=== PATIENT | male | born 1945 | race Caucasian/White ===

== ENCOUNTER 2017-08-04 08:20 | Observation (INO) ==
[2017-08-04] MEDS ORDERED: Aspirin 81 MG TAB.CHEW PO ONE (08:28)
[2017-08-04 08:54] LABS: Basophils % 0.4 %; Eosinophils # 0.1 K/mcL (0.0-0.6); Hematocrit 41.2 % (37.5-50.1); Hemoglobin 13.5 g/dL (12.9-16.9); Immature Granulocytes % 0.6 % (0-4); Lymphocytes # 3.6 K/mcL (0.6-4.6); Lymphocytes % 31.3 %; Mean Corpuscular HGB Conc 32.8 g/dL (31.6-35.5); Mean Corpuscular Hemoglobin 31.5 pg (28.0-33.3); Mean Corpuscular Volume 96.3 fL (83.0-100.0); Mean Platelet Volume 10.1 fL (9.4-12.4); Neutrophils # 6.6 K/mcL (1.6-8.9); Platelet Count 423 K/mcL (140-400); Red Blood Count 4.28 M/mcL (4.19-5.50); Red Cell Distribution Width 13.6 % (11.5-14.5); Segmented Neutrophils % 57.7 %
[2017-08-04 09:13] LABS: Calcium 9.2 mg/dL (8.6-10.3); Potassium 3.4 mEq/L (3.5-5.1)
[2017-08-04] MEDS ORDERED: 0.9 % Sodium Chloride 1,000 ML IVC ONE (09:40)
--- NOTE | 2017-08-04 09:44 | Emergency Department Note ---
START Narrative - START START: I examined this patient and my medical decision-making was reviewed with the Resident Physician. I agree with the documented findings, disposition and treatment plan as described except to the extent set forth below. 72-year-old male presents to the emergency room for speech problems and confusion. patient is a poor historian any lives at a [facility] and therefore we were not able to obtain much past medical history. However it was reported to studies had a speech difficulty for the past 2 weeks and has been confused. There is no focal motor deficits. CT of the brain was nonacute. Lab work is stable. His pressures have been slightly low but is not been hypertensive. On exam patient has problems answering questions. He can follow commands but cannot express himself well. Patient will be admitted for further workup for an expressive aphasia as well as confusion.
--- NOTE | 2017-08-04 09:50 | Emergency Department Note ---
Disposition Clinical Impression: Dysarthria, RUBY (acute kidney injury) Altered mental status Qualifiers: Altered mental status type: unspecified Qualified Code(s): R41.82 - Altered mental status, unspecified Disposition: Admitted As Inpatient Time of Disposition: 11: General Adult HPI - General Chief complaint: ED Altered Mental Status Stated complaint: AMS Time Seen by Provider: 08/04/17 08:22 Source: patient, EMS Mode of arrival: EMS Limitations: altered mental status Nursing Notes Reviewed: Yes Vital Signs Reviewed: Yes - History of Present Illness HPI Narrative: 72-year-old male brought in from assisted living facility with chief complaint of altered mental status. According to the facility patient has had altered mental status and trouble finding his words for the past 2-3 weeks. Patient denies any acute complaints at this time. He states he does have a history of prostate cancer but no new issues. He denies any chest pain, dizziness, headache, abdominal pain, nausea, vomiting or diarrhea. No other history able to be obtained due to patient's dysarthria. Pain Scale: 0 - Related Data Home Medications Medication Instructions Recorded Confirmed Amlodipine Besylate 10 mg PO DAILY 06/21/16 07/09/17 Aspirin Enteric Coated [Aspirin EC] 81 mg PO DAILY 06/21/16 07/09/17 Atorvastatin Calcium [Lipitor] 80 mg PO DAILY 06/21/16 07/09/17 Divalproex (24 HR) [Depakote ER 500 mg PO AD 06/21/16 07/09/17 (24 HR)] Famotidine [Pepcid] 40 mg PO DAILY 06/21/16 07/09/17 Levothyroxine Sodium [Levoxyl] 25 mcg PO DAILY 06/21/16 07/09/17 Losartan Potassium [Cozaar] 100 mg PO DAILY 06/21/16 07/09/17 Metformin HCl [Fortamet] 500 mg PO BID 06/21/16 07/09/17 Multivitamin/Iron/Folic Acid 1 each PO DAILY 06/21/16 07/09/17 [Centrum Complete Multivit Tab] Venlafaxine HCl [Venlafaxine HCl 75 mg PO DAILY 06/21/16 07/09/17 ER] lamoTRIgine [Lamictal] 100 mg PO BID 06/21/16 07/09/17 Previous Rx's Medication Instructions Recorded Abiraterone Acetate [Zytiga] 4 tab PO DAILY #120 tablet 03/29/17 predniSONE [Prednisone] 5 mg PO BID #60 tab.ds.pk 03/29/17 Allergies Allergy/AdvReac Type Severity Reaction Status Date / Time codeine Allergy Vomiting Verified 07/09/17 13:23 Sulfa (Sulfonamide Allergy Rash Verified 07/09/17 13:23 Antibiotics) All systems ED: reviewed and negative except as stated. Constitutional: Denies: fever Cardiovascular: Denies: chest pain, palpitations Respiratory: Denies: cough, dyspnea, wheezes Gastrointestinal: Denies: abdominal pain, nausea, vomiting Integumentary: Denies: rash Neurological: Reports: other (Dysarthria). Denies: headache, weakness, numbness , paresthesias Past Medical History - Past Medical History Source: unable to obtain Medical history: Reports: non-contributory, cancer, diabetes, seizures, thyroid disease, other Surgical history: Reports: non-contributory Psychiatric history: Reports: anxiety, bipolar, depression - Social History Smoking Status: Former smoker Smokeless Tobacco Status: No Alcohol use: Reports: rarely Drug use: Reports: none Physical Exam - General Limitations: altered mental status General appearance: alert, in no apparent distress - Head Head exam: atraumatic, normocephalic, normal inspection - Eye Eye exam: Present: normal appearance, PERRL, EOMI. Absent: scleral icterus, conjunctival injection - Neck Neck exam: Present: full ROM, other (Incision noted over the left anterior neck) . Absent: tenderness, meningismus - Chest Chest inspection: Present: normal inspection, symmetric chest wall rise. Absent : tenderness, rash - Respiratory Respiratory exam: Present: normal lung sounds bilaterally. Absent: respiratory distress, wheezes - Cardiovascular Cardiovascular exam: Present: regular rate, normal rhythm, normal heart sounds - Abdominal Exam Abdominal exam: Present: soft, Non-Tender. Absent: distention, guarding, rebound - Extremities Exam Extremities exam: Present: normal inspection, full ROM - Neurological Exam Neurological exam: Present: alert, oriented X3, CN II-XII intact, other ( Cerebellar exam within normal limits. Dysarthria on exam). Absent: motor sensory deficit - Skin Skin exam: Present: warm, intact Course Course Narrative: 72-year-old male presenting with altered mental status and dysarthria. Has been 2 to 3 weeks. We will perform stroke workup including CT of the head and basic lab work. Once CT results has been completed we will provide the patient with aspirin and admit the patient for stroke workup. Patient is alert and oriented 2. Vital signs stable. Has no acute complaints at this time. NIH scale 2. - Reevaluation(s) Reevaluation #1: Elevated creatinine at 1.77. We will provide the patient with one 1 L of fluid at this time. Patient alert with stable vital signs. We will plan to admit. CT within normal limits. I spoke with the admitting physician Dr. Ag. Patient is alert and vital signs stable. He agrees with this plan. I tried to call the assisted living facility that he lives at but no one picked up after multiple attempts. Vital Signs Temperature 97.6 F 08/04/17 08:21 Pulse Rate 97 08/04/17 08:21 Respiratory Rate 18 08/04/17 08:21 Blood Pressure 94/56 08/04/17 08:21 O2 Sat by Pulse Oximetry 97 08/04/17 08:21 Temperature 97.6 F 08/04/17 08:21 Pulse Rate 90 08/04/17 09:15 Respiratory Rate 16 08/04/17 09:15 Blood Pressure 97/63 08/04/17 09:15 O2 Sat by Pulse Oximetry 97 08/04/17 09:15 Oxygen Delivery Oxygen Delivery Room Air Medical Decision Making - Lab Data Result diagrams: 08/04/17 08:46 08/04/17 08:46 Lab Results 08/04/17 08/04/17 08/04/17 Range/Units 08:25 08:46 08:46 WBC 11.3 H (4.3-11.1) K/mcL RBC 4.28 (4.19-5.50) M/mcL Hgb 13.5 (12.9-16.9) g/dL Hct 41.2 (37.5-50.1) % MCV 96.3 (83.0-100.0) fL MCH 31.5 (28.0-33.3) pg MCHC 32.8 (31.6-35.5) g/dL RDW 13.6 (11.5-14.5) % Plt Count 423 H (140-400) K/mcL MPV 10.1 (9.4-12.4) fL Immature Gran % 0.6 (0-4) % Seg Neutrophils % 57.7 % Lymphocytes % 31.3 % Monocytes % 9.0 % Eosinophils % 1.0 % Basophils % 0.4 % Neutrophils # 6.6 (1.6-8.9) K/mcL Lymphocytes # 3.6 (0.6-4.6) K/mcL Monocytes # 1.0 (0.0-1.3) K/mcL Eosinophils # 0.1 (0.0-0.6) K/mcL Basophils # 0.0 (0.0-0.2) K/mcL PT 11.0 (9.4-12.1) Seconds INR 1.0 APTT 23.0 L (26.0-36.0) Seconds Sodium (136-145) mEq/L Potassium (3.5-5.1) mEq/L Chloride (98-107) mEq/L Carbon Dioxide (23-29) mEq/L BUN (8-23) mg/dL Creatinine (0.70-1.30) mg/dL Est GFR ( Amer) (> 60) Est GFR (Non-Af Amer) (> 60) BUN/Creatinine Ratio (6-26) Glucose (70-105) mg/dL POC Glucose 128 H (58-89) Calculated Osmolality (280-300) Calcium (8.6-10.3) mg/dL Troponin I (< 0.04) ng/mL 08/04/17 08/04/17 Range/Units 08:46 08:46 WBC (4.3-11.1) K/mcL RBC (4.19-5.50) M/mcL Hgb (12.9-16.9) g/dL Hct (37.5-50.1) % MCV (83.0-100.0) fL MCH (28.0-33.3) pg MCHC (31.6-35.5) g/dL RDW (11.5-14.5) % Plt Count (140-400) K/mcL MPV (9.4-12.4) fL Immature Gran % (0-4) % Seg Neutrophils % % Lymphocytes % % Monocytes % % Eosinophils % % Basophils % % Neutrophils # (1.6-8.9) K/mcL Lymphocytes # (0.6-4.6) K/mcL Monocytes # (0.0-1.3) K/mcL Eosinophils # (0.0-0.6) K/mcL Basophils # (0.0-0.2) K/mcL PT (9.4-12.1) Seconds INR APTT (26.0-36.0) Seconds Sodium 141 (136-145) mEq/L Potassium 3.4 L (3.5-5.1) mEq/L Chloride 104 (98-107) mEq/L Carbon Dioxide 16 L (23-29) mEq/L BUN 30 H (8-23) mg/dL Creatinine 1.77 H (0.70-1.30) mg/dL Est GFR ( Amer) 46 L (> 60) Est GFR (Non-Af Amer) 38 L (> 60) BUN/Creatinine Ratio 17 (6-26) Glucose 145 H (70-105) mg/dL POC Glucose (58-89) Calculated Osmolality 301 H (280-300) Calcium 9.2 (8.6-10.3) mg/dL Troponin I < 0.03 (< 0.04) ng/mL - EKG Data EKG #1 EKG attestation: Yes I reviewed and interpreted this EKG. EKG results narrative: Sinus rhythm with short NM interval. Nonspecific ST depression. 97 bpm. NM interval 116, QRS 80, QTC 406. No signs of acute ST segment elevation or ischemia. Compared to previous EKG completed on 07/11/2016 no new changes noted
[2017-08-04] MEDS ORDERED: Naloxone 0.4 MG/ML INJ IVP PRN (10:19)
[2017-08-04] MEDS ORDERED: Ondansetron 4 MG/2 ML VIAL IVP PRN (10:19)
[2017-08-04] MEDS ORDERED: Acetaminophen 325 MG TABLET PO PRN (10:19)
[2017-08-04] MEDS ORDERED: *HR* Promethazine 25 MG/ML VIAL IVP PRN (10:19)
--- NOTE | 2017-08-04 12:34 | Internal Med History&Physical ---
Date of Encounter: 08/04/17 Time of Encounter: 10:30 Assessment and Plan (1) Expressive aphasia Current visit: Yes Status: Acute Will admit the pt into Tele Reviewed his CT of Head - no acute ICH, no acute intracranial abnormality He does have significant expressive aphasia concern for acute vs subacute stroke not a candidate for TPA due to prolonged duration of symptoms placed him on quality assurance monitor chassis check FLP in AM Started him on ASA + Statin Neuro consulted MRI of brain in AM 2D Echo and Carotid doppler ordered (2) Altered mental status Current visit: Yes Status: Acute Could be stroke vs metabolic encephalopathy cont close monitoring Qualifiers: Altered mental status type: delirium Qualified Code(s): R41.0 - Disorientation, unspecified (3) RUBY (acute kidney injury) Current visit: Yes Status: Acute Slightly elevated creatinine started him on IV hydration (4) Seizure Current visit: Yes Status: Acute resumed home medications (5) Depression Current visit: Yes Status: Acute resumed home medications Qualifiers: Qualified Code(s): F32.9 - Major depressive disorder, single episode, unspecified (6) Compression fracture of lumbosacral spine Current visit: No Status: Chronic Continue home pain medication Qualifiers: Encounter type: subsequent encounter Qualified Code(s): S32.000D - Wedge compression fracture of unspecified lumbar vertebra, subsequent encounter for fracture with routine healing (7) Prostate cancer metastatic to intrapelvic lymph node Current visit: No Status: Chronic Following with heme oncology as an out patient Internal Medicine - H&P: HPI Chief complaint: Expressive aphasia Admitted From: Emergency Dept Plans for Post Hospital Care: Home History of present illness: Mr. 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 He also have expressive aphasia, wanted to say something but unable to communicate or express. He is alert, awake and oriented, however still looks confused. Denied any CP / SOB. Pt is not able to provide me any information. So I talked to his home care attendant from [facility] @ [phone], who provided me the above information. Past Med Surg Social Fam HX - Past Medical History Medical history: non-contributory, cancer, diabetes, seizures, thyroid disease, other Psychiatric history: anxiety, bipolar, depression - Past Surgical History Surgical History: non-contributory - Social History Smoking Status: Former smoker Smokeless Tobacco Status: No Alcohol use: rarely Drug use: none - Additional Family History Additional family history: Reviewed and patient did mention that his mother have stroke Internal Medicine - H&P: Meds Amlodipine Besylate 10 mg PO DAILY 06/21/16 [History] Aspirin Enteric Coated [Aspirin EC] 81 mg PO DAILY 06/21/16 [History] Atorvastatin Calcium [Lipitor] 80 mg PO HS 06/21/16 [History] Divalproex (24 HR) [Depakote ER (24 HR)] 500 mg PO TID 06/21/16 [History] Famotidine [Pepcid] 40 mg PO HS 06/21/16 [History] Levothyroxine Sodium [Levoxyl] 25 mcg PO QAM 06/21/16 [History] Losartan Potassium [Cozaar] 100 mg PO DAILY 06/21/16 [History] Multivitamin/Iron/Folic Acid [Centrum Complete Multivit Tab] 1 each PO DAILY 04/27 [History] lamoTRIgine [Lamictal] 100 mg PO BID 06/21/16 [History] Abiraterone Acetate [Zytiga] 4 tab PO DAILY #120 tablet 03/29/17 [Rx] Carbidopa/Levodopa ER 50/200 [Sinemet ER 50-200 TAB] 1 each PO BID 08/04/17 [ History] DULoxetine [Cymbalta] 30 mg PO BID 08/04/17 [History] Meloxicam [Meloxicam] 15 mg PO BID 08/04/17 [History] OxyCODONE/APAP 10/325 [Percocet 10/325 MG] 1 each PO QID 08/04/17 [History] metFORMIN [Glucophage] 500 mg PO BID 08/04/17 [History] 3 Allergy/AdvReac Type Severity Reaction Status Date / Time codeine Allergy Vomiting Verified 07/09/17 13:23 Sulfa (Sulfonamide Allergy Rash Verified 07/09/17 13:23 Antibiotics) All Systems PM: A 10-system review of systems was performed and is negative for pertinent findings except as documented above in the HPI. Review of systems: All the systems are reviewed everything is benign except the systems and symptoms I mentioned in the history of present illness - Constitutional Vitals: Temp Pulse Resp BP Pulse Ox 97.7 F 89 17 101/67 97 08/04/17 12:10 08/04/17 12:10 08/04/17 12:10 08/04/17 12:10 08/04/17 12:10 General appearance: Present: cooperative, A&O X 3 Exam: Patient is a lot awake and oriented to place and person. Patient is able to tell me where he came from. However due to expressive aphasia not able to understand completely his sentences - Head Head exam: Present: atraumatic, normal inspection - Neck Neck exam general surgery: Present: supple - Respiratory Respiratory exam: Present: decreased breath sounds. Absent: rales, respiratory distress, rhonchi, wheezes - Cardiovascular Cardiovascular exam: Present: RRR, +S1, +S2. Absent: systolic murmur, tachycardia - GI/Abdominal GI/Abdominal exam: Present: normal bowel sounds, soft. Absent: guarding, rebound, rigid, tenderness - Extremities Exam Extremities exam: Absent: calf tenderness, pedal edema, tenderness - Back Exam Back exam: Absent: CVA tenderness (L), CVA tenderness (R) - Neurological Exam Neurological exam: Present: alert, oriented X3, speech deficit. Absent: pronater drift, facial droop - Psychiatric Psychiatric exam: Present: normal affect, normal mood Internal Med - H&P Results - Labs CBC & Chem 7: 08/04/17 08:46 08/04/17 08:46
[2017-08-04] MEDS: Divalproex (24 HR) 500 MG TABLET PO SCH ×2 (14:25→20:25)
[2017-08-04] MEDS ORDERED: D5% in Water 1,000 ML IVC PRN (14:28)
[2017-08-04] MEDS ORDERED: Dextrose Gel 15 GM/37.5 ML TUBE PO PRN ×2 (14:28)
[2017-08-04] MEDS: D5% in 0.45% NACL 1,000 ML IVC SCH (14:28)
[2017-08-04] MEDS ORDERED: *HR* Dextrose 50 % in Water (Syg) 50 ML SYRINGE IVP PRN (14:28)
[2017-08-04] MEDS: Insulin LISPRO 300 UNITS/3 ML VIAL SQ SCH ×2 (16:30→22:22)
--- NOTE | 2017-08-04 16:52 | Neurology - Consult Note ---
Date of Encounter: 08/04/17 Time of Encounter: 15:51 Assessment and Plan (1) Altered mental status Current Visit: Yes Status: Acute Qualifiers: Altered mental status type: unspecified Qualified Code(s): R41.82 - Altered mental status, unspecified (2) Expressive aphasia Current Visit: Yes Status: Acute This patient was been admitted earlier who has an history of multiple medical condition including seizures as well as vagal nerve stimulator for his epilepsy. Patient noted to have difficulty with his speech has been going on for the past several weeks and now noted to be more prominent. Certainly the stroke is a major concern Currently it is not clear that he will be able to get an MRI or not because of the VNS is stimulator. In the meantime suggest that he should keep him on antiplatelet therapy with aspirin 325 mg daily. We will do the stroke workup including echocardiogram as well as carotid in fact we can do a CT angiogram to make sure there is intracranial stenosis. Other possibility could be related to VNS as sometimes it can cause difficulty with his speech but that is mostly articulation problem and not much true aphasia. He did not have any recent seizure suggested to continue on his current dose of Depakote and Lamictal. Check for any underlying infectious etiology and may be contributing to his symptoms. May benefit from physical therapy evaluation. History of Present Illness HPI: Mr. Aguero is a 72 year old male with past medical history of metastatic prostate cancer, major depression, seizure, hypertension, obstruct sleep apnea on CPAP hypertension and diabetes type II who is a long-term resident at the [facility], brought in EMS complaining about patient has been having confusion and altered mental status from last 2 weeks which is progressive worsening since last one week. Patient himself is not able to give much detailed information as per records mainly having difficulty with communication though he is alert and awake and oriented but at times noted to be confused. Patient also has a history of VNS stimulator for seizures had been seen by neurology as an outpatient for his seizure disorder on Depakote and Lamictal for quite some time but no recent seizures reported. Baseline he uses of the wheeled walker Past Med Surg Social Fam HX - Past Medical History Medical history: non-contributory, cancer, diabetes, seizures, thyroid disease, other Psychiatric history: anxiety, bipolar, depression - Past Surgical History Surgical History: non-contributory - Social History Smoking Status: Former smoker Smokeless Tobacco Status: No Alcohol use: rarely Drug use: none Medications and Allergies Amlodipine Besylate 10 mg PO DAILY 06/21/16 [History] Aspirin Enteric Coated [Aspirin EC] 81 mg PO DAILY 06/21/16 [History] Atorvastatin Calcium [Lipitor] 80 mg PO HS 06/21/16 [History] Divalproex (24 HR) [Depakote ER (24 HR)] 500 mg PO TID 06/21/16 [History] Famotidine [Pepcid] 40 mg PO HS 06/21/16 [History] Levothyroxine Sodium [Levoxyl] 25 mcg PO QAM 06/21/16 [History] Losartan Potassium [Cozaar] 100 mg PO DAILY 06/21/16 [History] Multivitamin/Iron/Folic Acid [Centrum Complete Multivit Tab] 1 each PO DAILY 04/27 [History] lamoTRIgine [Lamictal] 100 mg PO BID 06/21/16 [History] Abiraterone Acetate [Zytiga] 4 tab PO DAILY #120 tablet 03/29/17 [Rx] Carbidopa/Levodopa ER 50/200 [Sinemet ER 50-200 TAB] 1 each PO BID 08/04/17 [ History] DULoxetine [Cymbalta] 30 mg PO BID 08/04/17 [History] Meloxicam [Meloxicam] 15 mg PO BID 08/04/17 [History] OxyCODONE/APAP 10/325 [Percocet 10/325 MG] 1 each PO QID 08/04/17 [History] metFORMIN [Glucophage] 500 mg PO BID 08/04/17 [History] 3 Allergy/AdvReac Type Severity Reaction Status Date / Time codeine Allergy Vomiting Verified 07/09/17 13:23 Sulfa (Sulfonamide Allergy Rash Verified 07/09/17 13:23 Antibiotics) All Systems: The remainder of the systems were reviewed and are negative Physical Examination - Vital Signs Vital Signs: Initial Vital Signs Temp Pulse Resp BP Pulse Ox 97.6 F 97 18 94/56 97 08/04/17 08:21 08/04/17 08:21 08/04/17 08:21 08/04/17 08:21 08/04/17 08:21 - Constitutional General appearance: comfortable, other (HEENT atraumatic. Heart S1 and S2 audible. No pedal edema.) - Neurologic Sensorimotor examination: intact (Formal neurological examination patient is alert and awake. Oriented to person and place. Able to follow simple commands. Answer questions appropriately.On formal language testing he did noted to have difficulty with finding words though at times a iggy to say complete sentence but other times he is been having difficulty in articulation and saying things. Comprehension seems to be intact, he has some difficulty with the naming but most of the time he was able to name things quite easily. The patient is also intact but sometimes has difficulty in it as well. On cranial nerves examination no facial asymmetry.. Pupils are equal and reactive. Motor examination [id number] slow but normal. No focal motor weakness, 4/4 on formal testing in both upper and both lower extremities sensory examination was also intact reflexes are symmetrical. Downgoing toes bilaterally.) Results - Laboratory Findings CBC and BMP: 08/04/17 08:46 08/04/17 08:46 Abnormal lab findings: Abnormal lab results WBC 11.3 K/mcL (4.3-11.1) H 08/04/17 08:46 Plt Count 423 K/mcL (140-400) H 08/04/17 08:46 APTT 23.0 Seconds (26.0-36.0) L 08/04/17 08:46 Potassium 3.4 mEq/L (3.5-5.1) L 08/04/17 08:46 Carbon Dioxide 16 mEq/L (23-29) L 08/04/17 08:46 BUN 30 mg/dL (8-23) H 08/04/17 08:46 Creatinine 1.77 mg/dL (0.70-1.30) H 08/04/17 08:46 Est GFR ( Amer) 46 (> 60) L 08/04/17 08:46 Est GFR (Non-Af Amer) 38 (> 60) L 08/04/17 08:46 Glucose 145 mg/dL (70-105) H 08/04/17 08:46 POC Glucose 102 (58-89) H 08/04/17 15:58 Calculated Osmolality 301 (280-300) H 08/04/17 08:46 - Diagnostic Findings Additional findings: CT scan of the head did not show any acute bleed or infarct. Consult Discharge Plan - Plan Referrals: Sina Judge MD [Primary Care Provider] -
[2017-08-04] MEDS: *HR* Heparin 5,000 UNIT/ML VIAL SQ SCH (17:13)
[2017-08-04 19:33] LABS: Vitamin B12 331 pg/mL (250-1100)
[2017-08-04 19:38] LABS: Folate > 22.3 ng/mL (3.0-16.0)
[2017-08-04] MEDS: Famotidine 20 MG TABLET PO SCH (20:24)
[2017-08-04] MEDS: Carbidopa/Levodopa ER 50/200 TABLET PO SCH (20:25)
[2017-08-04] MEDS: lamoTRIgine 100 MG TABLET PO SCH (20:25)
[2017-08-04] MEDS ORDERED: Famotidine 20 MG TABLET PO SCH (21:00)
[2017-08-05] MEDS: D5% in 0.45% NACL 1,000 ML IVC SCH (04:39)
[2017-08-05] MEDS: *HR* Heparin 5,000 UNIT/ML VIAL SQ SCH ×2 (05:22→17:52)
[2017-08-05 06:15] LABS: Basophils % 0.4 %; Eosinophils # 0.1 K/mcL (0.0-0.6); Eosinophils % 1.1 %; Hematocrit 39.7 % (37.5-50.1); Hemoglobin 13.2 g/dL (12.9-16.9); Immature Granulocytes % 0.6 % (0-4); Lymphocytes # 2.9 K/mcL (0.6-4.6); Lymphocytes % 33.8 %; Mean Corpuscular HGB Conc 33.2 g/dL (31.6-35.5); Mean Corpuscular Hemoglobin 31.5 pg (28.0-33.3); Mean Corpuscular Volume 94.7 fL (83.0-100.0); Mean Platelet Volume 10.1 fL (9.4-12.4); Monocytes # 0.7 K/mcL (0.0-1.3); Monocytes % 8.3 %; Neutrophils # 4.8 K/mcL (1.6-8.9); Platelet Count 368 K/mcL (140-400); Red Blood Count 4.19 M/mcL (4.19-5.50); Red Cell Distribution Width 13.3 % (11.5-14.5); Segmented Neutrophils % 55.8 %
[2017-08-05 06:17] LABS: Hemoglobin A1C 5.4 %
[2017-08-05 06:27] LABS: BUN/Creatinine Ratio 28 (6-26); Blood Urea Nitrogen 27 mg/dL (8-23); Calcium 8.4 mg/dL (8.6-10.3); Carbon Dioxide 21 mEq/L (23-29); Chloride 104 mEq/L (98-107); Cholesterol 135 mg/dL (< 200); Glucose 135 mg/dL (70-105); HDL Cholesterol 34 mg/dL (40-59); LDL Cholesterol,Calculated 58 mg/dL (0-99); Osmolality,Calculated 291 (280-300); Potassium 3.3 mEq/L (3.5-5.1); Sodium 137 mEq/L (136-145); Triglycerides 214 mg/dL (< 150); eGFR For Non-African Americans > 60 (> 60)
[2017-08-05] MEDS: Insulin LISPRO 300 UNITS/3 ML VIAL SQ SCH ×4 (09:25→20:33)
[2017-08-05] MEDS: lamoTRIgine 100 MG TABLET PO SCH ×2 (09:30→20:29)
[2017-08-05] MEDS: Aspirin Enteric Coated 81 MG Tablet PO SCH (09:30)
[2017-08-05] MEDS: amLODIPine 5 MG TABLET PO SCH (09:30)
[2017-08-05] MEDS: Levothyroxine 25 MCG TABLET PO SCH (09:30)
[2017-08-05] MEDS: Divalproex (24 HR) 500 MG TABLET PO SCH ×3 (09:30→20:29)
[2017-08-05] MEDS: Carbidopa/Levodopa ER 50/200 TABLET PO SCH ×2 (09:30→20:29)
[2017-08-05] MEDS: ABIRATERONE ACETATE PO SCH (09:46)
--- NOTE | 2017-08-05 14:31 | Neurology Progress Note ---
Date of Encounter: 08/06/17 Time of Encounter: 14:30 Assessment and Plan (1) Altered mental status Current Visit: Yes Status: Resolved Qualifiers: Altered mental status type: unspecified Qualified Code(s): R41.82 - Altered mental status, unspecified (2) Expressive aphasia Current Visit: Yes Status: Acute Patient mental status has improved he is alert awake and oriented is still having difficulty with his speech suspect that he likely has new infarct. Unable to get MRI because of VNS stimulator. Suggest repeat CT scan of the head along with CT angiogram of the head to look for intracranial stenosis. Continue him on an aspirin. No clinical seizures his apical level was slightly low suggest to give an extra dose of Depakote and continue on the same. Patient would probably benefit from long-term speech therapy. Subjective Interval history: Clinically stable no other signs and symptoms not able to get an MRI because of vagal nerve stimulator. Is still having some difficulty with his speech but no seizures no other abnormality. Depakote level slightly low therapeutic. Objective - Constitutional Vitals: Temp Pulse Resp BP Pulse Ox 98.0 F 82 15 91/51 97 08/05/17 12:06 08/05/17 12:06 08/05/17 12:06 08/05/17 12:06 08/05/17 12:06 - Neurological Exam Sensorimotor examination: Present: intact (Formal neurological examination patient is alert and awake. Oriented to person and place. Able to follow simple commands. Answer questions appropriately.On formal language testing he did noted to have difficulty with finding words though at times a iggy to say complete sentence but other times he is been having difficulty in articulation and saying things. Comprehension seems to be intact, he has some difficulty with the naming but most of the time he was able to name things quite easily. The patient is also intact but sometimes has difficulty in it as well. On cranial nerves examination no facial asymmetry.. Pupils are equal and reactive. Motor examination [id number] slow but normal. No focal motor weakness, 4/4 on formal testing in both upper and both lower extremities sensory examination was also intact reflexes are symmetrical. Downgoing toes bilaterally.) Results - Laboratory Findings CBC and BMP: 08/06/17 04:40 08/06/17 04:40 Abnormal lab findings: Abnormal lab results APTT 23.0 Seconds (26.0-36.0) L 08/04/17 08:46 Potassium 3.3 mEq/L (3.5-5.1) L 08/05/17 05:54 Carbon Dioxide 21 mEq/L (23-29) L 08/05/17 05:54 BUN 27 mg/dL (8-23) H 08/05/17 05:54 BUN/Creatinine Ratio 28 (6-26) H 08/05/17 05:54 Glucose 135 mg/dL (70-105) H 08/05/17 05:54 POC Glucose 223 (58-89) H 08/04/17 19:18 Calcium 8.4 mg/dL (8.6-10.3) L 08/05/17 05:54 Triglycerides 214 mg/dL (< 150) H 08/05/17 05:54 VLDL Cholesterol, Calc 43 mg/dL (< 31) H 08/05/17 05:54 HDL Cholesterol 34 mg/dL (40-59) L 08/05/17 05:54 Folate > 22.3 ng/mL (3.0-16.0) H 08/04/17 18:22 Valproic Acid 42 mcg/mL (50-100) L 08/04/17 18:22 Consult Discharge Plan - Plan Referrals: Sina Judge MD [Primary Care Provider] - 08/15/17 1:20 pm
[2017-08-05] MEDS ORDERED: Divalproex (12 HR) 500 MG TABLET PO ONE (15:17)
--- NOTE | 2017-08-05 15:57 | Internal Med Progress Note ---
Date of Encounter: 08/05/17 Time of Encounter: 15:55 - Assessment and plan (1) RUBY (acute kidney injury) Current Visit: Yes Status: Acute Assessment and plan: Slightly elevated creatinine and was started on IV hydration with creatinine normalized today Avoid nephrotoxins (2) Altered mental status Current Visit: Yes Status: Resolved Assessment and plan: Patient mental status is back to baseline. Qualifiers: Altered mental status type: unspecified Qualified Code(s): R41.82 - Altered mental status, unspecified (3) Expressive aphasia Current Visit: Yes Status: Acute Assessment and plan: Reviewed his CT of Head - no acute ICH, no acute intracranial abnormality He does have significant expressive aphasia concern for acute vs subacute stroke Not a candidate for TPA due to prolonged duration of symptoms Started him on ASA + Statin Neuro consulted and following MRI of brain cannot be done secondary to vagal nerve stimulator. 2D Echo and Carotid doppler completed Neurologist saw the patient and would like to repeat the CT scan of the head along with CT a of the head to look for intercranial stenosis. He will continue on aspirin. Patient is able to follow simple commands and answer questions appropriately however on formal language testing per [place] he did have difficulty with finding words at times able to say complete sentences but other times he is having difficulty in articulation and saying certain things. Comprehension is intact but he has difficulty with naming most of the time. Echo report LVEF 65%, mild left ventricular diastolic dysfunction with normal right ventricular structure and function. No significant valvular dysfunction and no pulmonary hypertension ECG findings are normal. Carotid Dopplers are completed but report is pending Repeat CT and CTA of the head have been ordered but not done at this time Neurologist stated we will treat this as a stroke. (4) Seizure Current Visit: Yes Status: Acute Assessment and plan: No seizures but his Depakote level is a little low. We will give an additional 500 mg of Depakote today. Question arose if he should be on Depakote long- acting 3 times a day, will check with neurologist tomorrow on correct dosing (5) Compression fracture of lumbosacral spine Current Visit: No Status: Chronic Assessment and plan: Continue home pain medications Qualifiers: Encounter type: subsequent encounter Qualified Code(s): S32.000D - Wedge compression fracture of unspecified lumbar vertebra, subsequent encounter for fracture with routine healing (6) Depression Current Visit: Yes Status: Acute Assessment and plan: Continue home medications Qualifiers: Qualified Code(s): F32.9 - Major depressive disorder, single episode, unspecified (7) Prostate cancer metastatic to intrapelvic lymph node Current Visit: No Status: Chronic Assessment and plan: Follows with oncology as an outpatient (8) Hypokalemia Current Visit: Yes Status: Acute Assessment and plan: Replace and recheck - Subjective Interval history: Patient is lying in bed in no distress. He denies chest pain, shortness of breath, abdominal pain, headache, fever or chills. He is still having some difficulty with word finding and speech. - Constitutional Vitals: Temp Pulse Resp BP Pulse Ox 98.0 F 82 15 91/51 97 08/05/17 12:06 08/05/17 12:06 08/05/17 12:06 08/05/17 12:06 08/05/17 12:06 General appearance: Present: cooperative, A&O X 3, pleasant, obese, answers questions appropriately - Head Head exam: Present: atraumatic, normocephalic - Eye Eye exam: Present: PERRL, conjuntiva pink, sclera anicteric Pupils: Present: PERRL - Neck Neck exam general surgery: Present: supple, trachea midline. Absent: lymphadenopathy - Respiratory Respiratory exam: Present: decreased breath sounds. Absent: accessory muscle use, rales, respiratory distress, rhonchi, wheezes - Cardiovascular Cardiovascular exam: Present: RRR, +S1, +S2. Absent: diastolic murmur, gallop, rubs, systolic murmur - GI/Abdominal GI/Abdominal exam: Present: normal bowel sounds, soft, no peritoneal signs. Absent: distended, tenderness - Extremities Exam Extremities exam: Present: warm, radial pulses palpable and symmetrical. Absent : calf tenderness, cyanotic, pedal edema - Neurological Exam Neurological exam: Present: alert, CN II-XII intact, oriented X3, strengths equal and symetr throughout. Absent: pronater drift, facial droop, speech deficit - Skin Skin exam: Present: dry, intact, normal color, warm Internal Medicine: Result - Labs CBC & Chem 7: 08/05/17 05:54 08/05/17 05:54 Labs: Short CBC 08/05/17 Range/Units 05:54 WBC 8.5 (4.3-11.1) K/mcL Hgb 13.2 (12.9-16.9) g/dL Hct 39.7 (37.5-50.1) % Plt Count 368 (140-400) K/mcL Neutrophils # 4.8 (1.6-8.9) K/mcL BMP 08/05/17 05:54 Sodium 137 Potassium 3.3 L Chloride 104 Carbon Dioxide 21 L BUN 27 H Creatinine 0.98 Glucose 135 H Calcium 8.4 L Cardiac Enzymes 08/05/17 Range/Units 05:54 Troponin I < 0.03 (< 0.04) ng/mL - ABG Interpretation ABG results: PT/INR, D-dimer PT 11.0 Seconds (9.4-12.1) 08/04/17 08:46 - Impressions Impressions Echocardiogram 08/05/17 10:25 Impressions: LVEF 65%. Mild left ventricular diastolic dysfunction. Normal right ventricular structure and function. No significant valvular dysfunction. No pulmonary hypertension. Left Ventricular Wall Motion: Rest Echo Findings All wall segments showed normal motion. Findings: Study Quality * Technically adequate exam. ECG Findings * Normal sinus rhythm. Left Ventricle * LVEF 65%. * Mild left ventricular diastolic dysfunction. * Normal LV chamber size and wall thickness. Right Ventricle * Normal right ventricular structure and function. Left Atrium * Normal left atrial size. Right Atrium * Normal right atrial size. Aortic Valve * No aortic regurgitation. * Trileaflet aortic valve. * Normal aortic valve structure. * No aortic stenosis. Mitral Valve * Trivial mitral regurgitation. * Normal mitral valve structure. * No mitral stenosis. Tricuspid Valve * Tricuspid valve not well visualized. * No tricuspid regurgitation. Pulmonic Valve * Pulmonic valve is not well visualized. * No pulmonic stenosis. * No pulmonic regurgitation. Pulmonary Artery * Pulmonary artery not well visualized. Aorta * Normally sized aortic root. Pericardium * There is no pericardial effusion present. Interatrial Septum * Interatrial septum not well evaluated. IVC * The IVC is not well evaluated. Consult Discharge Plan - Plan Referrals: Sina Judge MD [Primary Care Provider] -
[2017-08-05] MEDS: Famotidine 20 MG TABLET PO SCH (20:29)
[2017-08-06 05:46] LABS: Hematocrit 35.5 % (37.5-50.1); Hemoglobin 11.7 g/dL (12.9-16.9); Mean Corpuscular Hemoglobin 31.3 pg (28.0-33.3); Mean Corpuscular Volume 94.9 fL (83.0-100.0); Mean Platelet Volume 10.4 fL (9.4-12.4); Platelet Count 349 K/mcL (140-400); Red Blood Count 3.74 M/mcL (4.19-5.50); Red Cell Distribution Width 13.5 % (11.5-14.5)
[2017-08-06 05:50] LABS: BUN/Creatinine Ratio 18 (6-26); Blood Urea Nitrogen 16 mg/dL (8-23); Calcium 8.4 mg/dL (8.6-10.3); Carbon Dioxide 23 mEq/L (23-29); Chloride 109 mEq/L (98-107); Glucose 116 mg/dL (70-105); Osmolality,Calculated 294 (280-300); Potassium 3.9 mEq/L (3.5-5.1); Sodium 141 mEq/L (136-145); eGFR For Non-African Americans > 60 (> 60)
[2017-08-06] MEDS: *HR* Heparin 5,000 UNIT/ML VIAL SQ SCH (06:10)
[2017-08-06] MEDS: Insulin LISPRO 300 UNITS/3 ML VIAL SQ SCH ×2 (09:51→12:15)
[2017-08-06] MEDS: ABIRATERONE ACETATE PO SCH (09:52)
[2017-08-06] MEDS: lamoTRIgine 100 MG TABLET PO SCH (10:00)
[2017-08-06] MEDS: Aspirin Enteric Coated 81 MG Tablet PO SCH (10:00)
[2017-08-06] MEDS: Divalproex (24 HR) 500 MG TABLET PO SCH ×2 (10:00→15:25)
[2017-08-06] MEDS: amLODIPine 5 MG TABLET PO SCH (10:00)
[2017-08-06] MEDS: Levothyroxine 25 MCG TABLET PO SCH (10:00)
[2017-08-06] MEDS: Carbidopa/Levodopa ER 50/200 TABLET PO SCH (10:00)
--- NOTE | 2017-08-06 14:00 | Physician Discharge Referral ---
Home Health/Hosp Referral Info Transfer to: Home Health Provider in Charge Post Discharge: PCP - Respiratory Orders Smoking Cessation: Smoking cessation has been advised. For more information, call the [place] Tobacco Quit Line at 7-295-GTDN-NOW. - Diet/Nutrition Diet/Nutrition Orders: Regular - Activity Activity Orders: Ambulate - Services Needed Following services are medically necessary services: Nursing, Physical Therapy, Occupational Therapy - Transfer Medications Home Medications: Amlodipine Besylate 10 mg PO DAILY 06/21/16 [History] Aspirin Enteric Coated [Aspirin EC] 81 mg PO DAILY 06/21/16 [History] Atorvastatin Calcium [Lipitor] 80 mg PO HS 06/21/16 [History] Divalproex (24 HR) [Depakote ER (24 HR)] 500 mg PO TID 06/21/16 [History] Famotidine [Pepcid] 40 mg PO HS 06/21/16 [History] Levothyroxine Sodium [Levoxyl] 25 mcg PO QAM 06/21/16 [History] Losartan Potassium [Cozaar] 100 mg PO DAILY 06/21/16 [History] Multivitamin/Iron/Folic Acid [Centrum Complete Multivit Tab] 1 each PO DAILY 04/27 [History] lamoTRIgine [Lamictal] 100 mg PO BID 06/21/16 [History] Abiraterone Acetate [Zytiga] 4 tab PO DAILY #120 tablet 03/29/17 [Rx] Carbidopa/Levodopa ER 50/200 [Sinemet ER 50-200 TAB] 1 each PO BID 08/04/17 [ History] DULoxetine [Cymbalta] 30 mg PO BID 08/04/17 [History] Meloxicam [Meloxicam] 15 mg PO BID 08/04/17 [History] OxyCODONE/APAP 10/325 [Percocet 10/325 MG] 1 each PO QID 08/04/17 [History] metFORMIN [Glucophage] 500 mg PO BID 08/04/17 [History] Allergies/Adverse Reactions: 3 Allergy/AdvReac Type Severity Reaction Status Date / Time codeine Allergy Vomiting Verified 07/09/17 13:23 Sulfa (Sulfonamide Allergy Rash Verified 07/09/17 13:23 Antibiotics) Certification: Further, I certify that my clinical findings support that this patient is homebound (i.e. absences from home require considerable and taxing effort and are for medical reasons or caodaism services or infrequently or short duration when for other reasons) because: Homebound Reason: Patient requires assistance of a person or device to safely leave home, Altered mental status requiring supervision when leaving home Attestation: My signature below is to certify that this patient is under my care and that I, or nurse practitioner, or a physician's glass ribbon machine operator assistant working with me, has a face-to -face encounter with this patient.
--- NOTE | 2017-08-06 14:39 | Discharge Summary ---
- NOTES TO OUTPATIENT PROVIDER Notes to Outpatient Provider: Monitor BMP Orders not resulted at time of discharge: Pending orders 08/04/17 16:53 UA w. reflex microscopic [Urinalysis reflex Microscopic] [URIN] Routine 08/04/17 18:22 Vitamin B1 (Thiamine) Whole Bl Routine Date of Encounter: 08/06/17 Time of Encounter: 14:37 - Discharge Diagnosis (1) Expressive aphasia Priority: Primary Status: Acute (2) Altered mental status Priority: Primary Status: Acute Qualifiers: Altered mental status type: unspecified Qualified Code(s): R41.82 - Altered mental status, unspecified (3) RUBY (acute kidney injury) Priority: Secondary Status: Acute (4) Seizure Priority: Secondary Status: Acute (5) Prostate cancer metastatic to intraabdominal lymph node Priority: Secondary Status: Chronic Hospital course: Mr. Aguero is a 72 year old male with history of metastatic Prostate cancer, seizures for which he had a vagal nerve stimulator in the past admitted with altered mental status/expressivity phase here. Initially was concerned about acute/subacute CVA. Initial CT head was negative for any acute finding. He was seen by a neurologist. Recommended MRI of the brain. But he could not have the MRI because of the vagal nerve stimulator. He underwent CT angiogram of the head. Which did not reveal any significant finding attributable for his neurological symptoms. He was followed during the hospital stay. His mental status gradually improved. At the time of discharge he was able to communicate reasonably well. I could not find any dysphasia. But he was generally weak and had difficulty ambulating to some extent. Because of this he was referred to home health for physical and occupational therapy. He had an acute kidney injury on admission his BUNs was 30 and creatinine was 1.7 improved to 16 and 0.87 at discharge His hypokalemia 3.3 was replaced and potassium was 3.9 at discharge He was followed by neurology during the hospital stay. Did not have any new recommendation at the time of discharge. He was continued on his mood stabilizing agents and antiseizure medications. He was on Mobic mg twice a day. Which was changed to 15 mg daily. He will receive outpatient PT OT evaluation and treatment. Recommended to follow-up with primary care physician and neurology. - Time Spent with Patient Total time spent providing and/or coordinating discharge services: Greater than 30 minutes - Discharge Medications Prescriptions: Meloxicam [Mobic] 15 mg PO DAILY 30 Days #30 tab Home Medications: Amlodipine Besylate 10 mg PO DAILY 06/21/16 [History] Aspirin Enteric Coated [Aspirin EC] 81 mg PO DAILY 06/21/16 [History] Atorvastatin Calcium [Lipitor] 80 mg PO HS 06/21/16 [History] Divalproex (24 HR) [Depakote ER (24 HR)] 500 mg PO TID 06/21/16 [History] Famotidine [Pepcid] 40 mg PO HS 06/21/16 [History] Levothyroxine Sodium [Levoxyl] 25 mcg PO QAM 06/21/16 [History] Losartan Potassium [Cozaar] 100 mg PO DAILY 06/21/16 [History] Multivitamin/Iron/Folic Acid [Centrum Complete Multivit Tab] 1 each PO DAILY 04/27 [History] lamoTRIgine [Lamictal] 100 mg PO BID 06/21/16 [History] Abiraterone Acetate [Zytiga] 4 tab PO DAILY #120 tablet 03/29/17 [Rx] Carbidopa/Levodopa ER 50/200 [Sinemet ER 50-200 Tab] 1 each PO BID 08/04/17 [ History] DULoxetine [Cymbalta] 30 mg PO BID 08/04/17 [History] OxyCODONE/APAP 10/325 [Percocet 10/325 MG] 1 each PO QID 08/04/17 [History] metFORMIN [Glucophage] 500 mg PO BID 08/04/17 [History] Meloxicam [Mobic] 15 mg PO DAILY 30 Days #30 tab 08/06/17 [Rx] Allergies/Adverse Reactions: 3 Allergy/AdvReac Type Severity Reaction Status Date / Time codeine Allergy Vomiting Verified 07/09/17 13:23 Sulfa (Sulfonamide Allergy Rash Verified 07/09/17 13:23 Antibiotics) Date of admission: 08/04/17 10:46 Primary care physician: Sina Judge MD Consults: 08/04/17 12:44 Consult to Neurology [CONS] Routine Consulting Provider: Neurology [facility] Reason for Consult: Acute expressive aphasia Time Notified: 12:45 Call Completed: Yes - Constitutional Vitals: Temp Pulse Resp BP Pulse Ox 98.1 F 87 16 137/76 93 08/06/17 12:15 08/06/17 12:15 08/06/17 12:15 08/06/17 12:15 08/06/17 12:15 General appearance: Present: cooperative, A&O X 3, pleasant, obese, answers questions appropriately - Patient Status Disposition: Home Health Service Condition: Fair Functional capacity at discharge: uses cane/walker Overall status at discharge: patient is progressing back to baseline - Discharge Instructions Follow Up With: Sina Judge MD [Primary Care Provider] - Additional Instructions: Follow up with Neurologist - Diet and Activity Activity: as per physical therapy Diet: advance to your usual diet - VTE Reasons for not Prescribing Prophylaxis: Treatment not Indicated - Low risk for VTE
[2017-08-06 15:21] VITALS: BP 144/80
--- NOTE | 2017-08-07 18:11 | Electrocardiograph Report ---
[place] [id number] Test Date: 2017-08-04 Pat Name: Meek Aguero Department: 104 Room: [facility] Gender: M Software Test Analyst: LEANN : 1945 Requested By: Jessica Snyder Order Number: [id number] Reading MD: Luis Thompson Measurements Intervals [place] Rate: 97 P: 7 UT: 116 QRS: -14 QRSD: 80 T: 41 QT: 351 QTc: 406 Interpretive Statements SINUS RHYTHM WITH SHORT UT INTERVAL MODERATE ST DEPRESSION Electronically Signed On 08-07-2017 18:09:06 EST by Luis Thompson
--- NOTE | 2017-08-07 18:29 | Electrocardiograph Report ---
[place] [id number] Test Date: 2017-08-05 Pat Name: Meek Aguero Department: 113 Room: [facility] Gender: M Probate Clerk: [id number] : 1945 Requested By: Arturo Keyes Order Number: [id number] Reading MD: Luis Thompson Measurements Intervals [place] Rate: 84 P: 26 SC: 145 QRS: -15 QRSD: 90 T: 55 QT: 353 QTc: 394 Interpretive Statements SINUS RHYTHM NONSPECIFIC ST & T-WAVE ABNORMALITY Electronically Signed On 08-07-2017 18:27:50 EST by Luis Thompson
== END 2017-08-06 16:09 | disposition home health service (06) ==
LOC: EMEROO 08:20 → 3BNU 08:20
PROVIDERS: ADMIT Family Medicine; ATTEND Registered Nurse

== ENCOUNTER 2017-08-07 14:43 | Inpatient (IN) ==
[2017-08-07] MEDS ORDERED: Naloxone 0.4 MG/ML INJ IVP ONE (15:59)
[2017-08-07 16:05] LABS: Basophils % 0.3 %; Eosinophils % 0.2 %; Hematocrit 37.5 % (37.5-50.1); Hemoglobin 12.1 g/dL (12.9-16.9); Immature Granulocytes % 0.8 % (0-4); Lymphocytes % 16.1 %; Mean Corpuscular HGB Conc 32.3 g/dL (31.6-35.5); Mean Corpuscular Hemoglobin 31.3 pg (28.0-33.3); Mean Corpuscular Volume 96.9 fL (83.0-100.0); Mean Platelet Volume 9.9 fL (9.4-12.4); Monocytes # 0.4 K/mcL (0.0-1.3); Monocytes % 5.8 %; Neutrophils # 4.8 K/mcL (1.6-8.9); Platelet Count 335 K/mcL (140-400); Red Blood Count 3.87 M/mcL (4.19-5.50); Red Cell Distribution Width 13.9 % (11.5-14.5); Segmented Neutrophils % 76.8 %
--- NOTE | 2017-08-07 16:16 | Emergency Department Note ---
START Narrative - START START: I examined this patient and my medical decision-making was reviewed with the DIELECTRIC PRESS OPERATOR/PA/Advanced Practice Nurse/Resident Physician. I agree with the documented findings, disposition and treatment plan as described except to the extent set forth below. I did see the patient spoke with him and examined him and he does not know why he is here. The patient is confused. He specifically denies any pain in the head, neck, chest, abdomen or back. No fevers or vomiting. I did review the nurse's notes. I did review the previous record. Testing including labs and imaging are ordered and results are pending. The patient is stable. No focality. [id number] I did speak with the power of disability attorney who is the sister Lesly Herrera #[phone] and she states the patient has been confused since discharge and has been trying to get into people's cars and currently lives in a fpc called the [facility]. [id number] I did review the EKG showing normal sinus rhythm with rate of 76 without acute ischemic change 0415
[2017-08-07 16:43] LABS: Ethanol < 10 mg/dL (0-10)
--- NOTE | 2017-08-07 16:46 | Emergency Department Note ---
Disposition Clinical Impression: Altered mental status, CVA (cerebral vascular accident) Disposition: Admitted As Inpatient Condition: Undetermined Referrals: Sina Judge MD [Primary Care Provider] - Forms: ED Satisfaction Letter Altered Mental Status HPI - General Chief Complaint: ED Altered Mental Status Stated Complaint: Altered menal status Time Seen by Provider: 08/07/17 15:01 Source: patient, EMS Mode of arrival: EMS Limitations: altered mental status Nursing Notes Reviewed: Yes Vital Signs Reviewed: Yes - History of Present Illness HPI Narrative: 72-year-old male with past medical history of prostate cancer, diabetes, seizures, thyroid disease, and bipolar, presents to the ED via EMS from a [facility] with altered mental status. The patient states to me that he is here for prostate cancer. But he is unable to describe any other reason of why he is in the hospital. He is alert and oriented to person and place, but not to time. He reported to the medical student that he was having back pain, but upon my evaluation he denies any pain. He denies any acute complaints at this time. He denies fevers, chills, lightheadedness, syncope, difficulty speaking, difficulty swallowing, chest pain, shortness of breath, abdominal pain, nausea, vomiting, constipation, diarrhea, dysuria, or leg pain or swelling. He was recently discharged from [facility] 2 days ago for expressive aphasia and altered mental status. During her hospitalization he received a CTA of the head which did not show any significant findings for his symptoms. He is evaluated by neurology at that time with recommendation of PT and OT. Discharge summary reports that his mental status gradually improved and he was able to communicate reasonably well upon discharge, however he was generally weak and had some difficulty ambulating at that time. - Related Data Home Medications Medication Instructions Recorded Confirmed Amlodipine Besylate 10 mg PO DAILY 06/21/16 08/04/17 Aspirin Enteric Coated [Aspirin EC] 81 mg PO DAILY 06/21/16 07/09/17 Atorvastatin Calcium [Lipitor] 80 mg PO HS 06/21/16 08/04/17 Divalproex (24 HR) [Depakote ER 500 mg PO TID 06/21/16 08/04/17 (24 HR)] Famotidine [Pepcid] 40 mg PO HS 06/21/16 08/04/17 Levothyroxine Sodium [Levoxyl] 25 mcg PO QAM 06/21/16 08/04/17 Losartan Potassium [Cozaar] 100 mg PO DAILY 06/21/16 08/04/17 Multivitamin/Iron/Folic Acid 1 each PO DAILY 06/21/16 07/09/17 [Centrum Complete Multivit Tab] lamoTRIgine [Lamictal] 100 mg PO BID 06/21/16 08/04/17 Carbidopa/Levodopa ER 50/200 1 each PO BID 08/04/17 08/04/17 [Sinemet ER 50-200 Tab] DULoxetine [Cymbalta] 30 mg PO BID 08/04/17 08/04/17 OxyCODONE/APAP 10/325 [Percocet 1 each PO QID 08/04/17 08/04/17 10/325 MG] metFORMIN [Glucophage] 500 mg PO BID 08/04/17 08/04/17 Previous Rx's Medication Instructions Recorded Abiraterone Acetate [Zytiga] 4 tab PO DAILY #120 tablet 03/29/17 Meloxicam [Mobic] 15 mg PO DAILY 30 Days #30 tab 08/06/17 Allergies Allergy/AdvReac Type Severity Reaction Status Date / Time codeine Allergy Vomiting Verified 07/09/17 13:23 Sulfa (Sulfonamide Allergy Rash Verified 07/09/17 13:23 Antibiotics) All systems ED: reviewed and negative except as stated. Review of Systems: As Per HPI Past Medical History - Past Medical History Medical history: Reports: non-contributory, cancer, diabetes, seizures, thyroid disease, other Surgical history: Reports: non-contributory Psychiatric history: Reports: anxiety, bipolar, depression - Social History Smoking Status: Former smoker Smokeless Tobacco Status: No Alcohol use: Reports: rarely Drug use: Reports: none Physical Exam - General Limitations: altered mental status General appearance: alert, in no apparent distress - Head Head exam: atraumatic, normocephalic - Eye Eye exam: Present: normal appearance, PERRL, EOMI - ENT ENT exam: normal oropharynx, mucous membranes moist - Neck Neck exam: Present: normal inspection, full ROM, trachea midline. Absent: tenderness - Chest Chest inspection: Present: symmetric chest wall rise - Respiratory Respiratory exam: Present: wheezes (Expiratory wheezes throughout lung vivar). Absent: respiratory distress, accessory muscle use - Cardiovascular Cardiovascular exam: Present: regular rate, normal rhythm, +S1, +S2 - Abdominal Exam Abdominal exam: Present: soft, Non-Tender, normal bowel sounds - Extremities Exam Extremities exam: Present: normal inspection, normal capillary refill. Absent: tenderness, pedal edema - Back Exam Back exam: Present: normal inspection. Absent: tenderness - Neurological Exam Neurological exam: Present: alert, CN II-XII intact, reflexes normal, other ( Strength 5/5 in upper and lower extremities bilaterally). Absent: motor sensory deficit - Expanded Neurological Exam Patient oriented to: Present: person, place Speech: Present: expressive aphasia Cranial nerves: EOM function (II, III, IV, ): Normal, facial sensation (V): Normal, facial palsy (VII): Normal, spinal accessory function (XI): Normal, tongue deviation (XII): Normal Motor strength - LUE: 5/5 Motor strength - RUE: 5/5 Motor strength - LLE: 5/5 Motor strength - RLE: 5/5 Upper motor neuron exam: althea neglect: Absent bilaterally, pronator drift: Absent bilaterally Sensory exam upper extremity: light touch: Normal Sensory exam lower extremity: light touch: Normal DTR: bicep (L): 2+, bicep (R): 2+, patellar (L): 2+, patellar (R): 2+ Coma Scale Eye Opening: Spontaneous Coma Scale Motor Response: Obeys Commands Coma Scale Verbal Response: Confused Coma Scale Total: 14 - Skin Skin exam: Present: warm, dry, intact, normal color Course Vital Signs Temperature 97.7 F 08/07/17 14:45 Pulse Rate 83 08/07/17 14:45 Respiratory Rate 16 08/07/17 14:45 Blood Pressure 105/60 08/07/17 14:45 O2 Sat by Pulse Oximetry 94 08/07/17 14:45 Temperature 97.7 F 08/07/17 14:45 Pulse Rate 81 08/07/17 18:28 Respiratory Rate 15 08/07/17 18:28 Blood Pressure 126/64 08/07/17 18:28 O2 Sat by Pulse Oximetry 96 08/07/17 18:28 Oxygen Delivery Oxygen Delivery Room Air Altered Mental Status - MDM Narrative Medical decision making narrative: CBC unremarkable. Chemistry panel with RUBY, Cr 1.39 (baseline 0.8-0.9). TSH normal. Valproic acid level normal. Ethyl alcohol within normal limits. Chest x-ray shows no acute process. CT of the head shows questionable low attenuation within the right upper lobe which could represent acute to subacute infarct. This was not noted on previous exams from his recent hospitalization. His symptoms of altered mental status have an unclear timing onset, therefore the patient is not a candidate for TPA. He will be admitted to the hospitalization for further evaluation and treatment. - Differential Diagnosis Likely: alcoholic intoxication, altered mental status, delirium, dementia, hypoglycemia - Medical Records Medical records reviewed: Yes I reviewed the patient's medical records. Recent admission with similar complaints. CTA showed no acute abnormalities. Recommendations were for physical therapy and occupational therapy at that time. - Lab Data Lab results reviewed: Yes I reviewed the patient's lab results. Result diagrams: 08/07/17 15:43 08/07/17 15:43 Lab Results 08/07/17 08/07/17 08/07/17 Range/Units 15:43 15:43 15:43 WBC 6.3 (4.3-11.1) K/mcL RBC 3.87 L (4.19-5.50) M/mcL Hgb 12.1 L (12.9-16.9) g/dL Hct 37.5 (37.5-50.1) % MCV 96.9 (83.0-100.0) fL MCH 31.3 (28.0-33.3) pg MCHC 32.3 (31.6-35.5) g/dL RDW 13.9 (11.5-14.5) % Plt Count 335 (140-400) K/mcL MPV 9.9 (9.4-12.4) fL Immature Gran % 0.8 (0-4) % Seg Neutrophils % 76.8 % Lymphocytes % 16.1 % Monocytes % 5.8 % Eosinophils % 0.2 % Basophils % 0.3 % Neutrophils # 4.8 (1.6-8.9) K/mcL Lymphocytes # 1.0 (0.6-4.6) K/mcL Monocytes # 0.4 (0.0-1.3) K/mcL Eosinophils # 0.0 (0.0-0.6) K/mcL Basophils # 0.0 (0.0-0.2) K/mcL PT (9.4-12.1) Seconds INR APTT (26.0-36.0) Seconds Sodium 141 (136-145) mEq/L Potassium 4.6 (3.5-5.1) mEq/L Chloride 106 (98-107) mEq/L Carbon Dioxide 19 L (23-29) mEq/L BUN 15 (8-23) mg/dL Creatinine 1.39 H (0.70-1.30) mg/dL Est GFR ( Amer) > 60 (> 60) Est GFR (Non-Af Amer) 50 L (> 60) BUN/Creatinine Ratio 11 (6-26) Glucose 121 H (70-105) mg/dL Calculated Osmolality 294 (280-300) Calcium 8.7 (8.6-10.3) mg/dL Total Bilirubin 0.3 (0.3-1.0) mg/dL Direct Bilirubin 0.1 (0.0-0.2) mg/dL Indirect Bilirubin 0.2 (0.0-1.2) mg/dL AST 17 (13-39) Units/L ALT 7 (7-52) Units/L Alkaline Phosphatase 61 (34-104) Units/L Troponin I < 0.03 (< 0.04) ng/mL Serum Total Protein 6.3 L (6.4-8.9) g/dL Albumin 3.5 (3.5-5.7) g/dL Globulin 2.8 (2.4-3.5) g/dL Albumin/Globulin Ratio 1.3 (1.1-2.2) TSH 1.106 (0.340-5.600) mcIU/mL Valproic Acid 61 (50-100) mcg/mL Ethyl Alcohol < 10 (0-10) mg/dL 08/07/17 Range/Units 17:20 WBC (4.3-11.1) K/mcL RBC (4.19-5.50) M/mcL Hgb (12.9-16.9) g/dL Hct (37.5-50.1) % MCV (83.0-100.0) fL MCH (28.0-33.3) pg MCHC (31.6-35.5) g/dL RDW (11.5-14.5) % Plt Count (140-400) K/mcL MPV (9.4-12.4) fL Immature Gran % (0-4) % Seg Neutrophils % % Lymphocytes % % Monocytes % % Eosinophils % % Basophils % % Neutrophils # (1.6-8.9) K/mcL Lymphocytes # (0.6-4.6) K/mcL Monocytes # (0.0-1.3) K/mcL Eosinophils # (0.0-0.6) K/mcL Basophils # (0.0-0.2) K/mcL PT 11.2 (9.4-12.1) Seconds INR 1.0 APTT 25.2 L (26.0-36.0) Seconds Sodium (136-145) mEq/L Potassium (3.5-5.1) mEq/L Chloride (98-107) mEq/L Carbon Dioxide (23-29) mEq/L BUN (8-23) mg/dL Creatinine (0.70-1.30) mg/dL Est GFR ( Amer) (> 60) Est GFR (Non-Af Amer) (> 60) BUN/Creatinine Ratio (6-26) Glucose (70-105) mg/dL Calculated Osmolality (280-300) Calcium (8.6-10.3) mg/dL Total Bilirubin (0.3-1.0) mg/dL Direct Bilirubin (0.0-0.2) mg/dL Indirect Bilirubin (0.0-1.2) mg/dL AST (13-39) Units/L ALT (7-52) Units/L Alkaline Phosphatase (34-104) Units/L Troponin I (< 0.04) ng/mL Serum Total Protein (6.4-8.9) g/dL Albumin (3.5-5.7) g/dL Globulin (2.4-3.5) g/dL Albumin/Globulin Ratio (1.1-2.2) TSH (0.340-5.600) mcIU/mL Valproic Acid (50-100) mcg/mL Ethyl Alcohol (0-10) mg/dL - Radiology Data Radiology results reviewed: Yes I reviewed the patient's radiology results. - EKG Data EKG attestation: Yes I reviewed and interpreted this EKG. EKG shows normal: sinus rhythm, axis, intervals, QRS complexes, ST-T waves TPA Checklist - LKW: 3-4.5 hrs Add. Warnings/Precautions Patient/family understanding: The patient/family members have been counseled and understood the risk, benefit , and alternatives of treatment.
[2017-08-07 16:53] LABS: Valproate 61 mcg/mL (50-100)
[2017-08-07 17:05] LABS: Alanine Aminotransferase 7 Units/L (7-52); Albumin 3.5 g/dL (3.5-5.7); Albumin/Globulin Ratio 1.3 (1.1-2.2); Alkaline Phosphatase 61 Units/L (34-104); Aspartate Amino Transferase 17 Units/L (13-39); BUN/Creatinine Ratio 11 (6-26); Bilirubin,Direct 0.1 mg/dL (0.0-0.2); Bilirubin,Indirect 0.2 mg/dL (0.0-1.2); Bilirubin,Total 0.3 mg/dL (0.3-1.0); Blood Urea Nitrogen 15 mg/dL (8-23); Calcium 8.7 mg/dL (8.6-10.3); Carbon Dioxide 19 mEq/L (23-29); Chloride 106 mEq/L (98-107); Globulin 2.8 g/dL (2.4-3.5); Glucose 121 mg/dL (70-105); Osmolality,Calculated 294 (280-300); Potassium 4.6 mEq/L (3.5-5.1); Sodium 141 mEq/L (136-145); Total Protein 6.3 g/dL (6.4-8.9); eGFR For Non-African Americans 50 (> 60)
[2017-08-07 17:41] LABS: Prothrombin Time 11.2 Seconds (9.4-12.1)
[2017-08-07 17:47] LABS: Activated Partial Thrombo Time 25.2 Seconds (26.0-36.0)
[2017-08-07 17:58] LABS: Thyroid Stimulating Hormone 1.106 mcIU/mL (0.340-5.600)
[2017-08-07] MEDS ORDERED: Acetaminophen 325 MG TABLET PO PRN (22:05)
[2017-08-07] MEDS ORDERED: Naloxone 0.4 MG/ML INJ IVP PRN (22:05)
[2017-08-07] MEDS ORDERED: *HR* Dextrose 50 % in Water (Syg) 50 ML SYRINGE IVP PRN (22:09)
[2017-08-07] MEDS ORDERED: Dextrose Gel 15 GM/37.5 ML TUBE PO PRN ×2 (22:09)
[2017-08-07] MEDS ORDERED: D5% in Water 1,000 ML IVC PRN (22:09)
[2017-08-07] MEDS ORDERED: *HR* OxyCODONE/APAP 10/325 TABLET PO PRN (22:10)
[2017-08-08] MEDS: 0.9 % Sodium Chloride 1,000 ML IVC SCH ×2 (00:10→15:00)
[2017-08-08] MEDS: Insulin LISPRO 300 UNITS/3 ML VIAL SQ SCH ×4 (01:13→17:21)
--- NOTE | 2017-08-08 02:59 | Internal Med History&Physical ---
Date of Encounter: 08/07/17 Time of Encounter: 21:00 Assessment and Plan (1) ESTHER (obstructive sleep apnea) Current visit: Yes Status: Acute Previous chart shows pt needs CPAP, will place pt on CPAP during night. (2) DVT prophylaxis Current visit: Yes Status: Acute Heparin SC (3) Altered mental status Current visit: Yes Status: Acute Etiology is possibly due to CVA. Not sure his baseline mental status. Pt is awake, alert, possibly having baseline dementia. - Cont cardiac monitoring. - Pt is already on ASA and atorvastatin - PT/OT and speech therapy evaluation. Qualifiers: Altered mental status type: disorientation Qualified Code(s): R41.0 - Disorientation, unspecified (4) CVA (cerebral vascular accident) Current visit: Yes Status: Acute Pt has symptoms since 08/04/17 since last admission. Pt cannot have MRI b/o stimulator. - Cont cardiac monitoring. - Pt is already on ASA and atorvastatin - PT/OT and speech therapy evaluation. - Pt had echo, duplex carotid and CTA on last admission. Qualifiers: CVA mechanism: unspecified Qualified Code(s): I63.9 - Cerebral infarction, unspecified (5) RUBY (acute kidney injury) Current visit: No Status: Acute Cont IVF and f/u renal function. (6) Depression Current visit: No Status: Acute Cont home meds Qualifiers: Depression Type: unspecified Qualified Code(s): F32.9 - Major depressive disorder, single episode, unspecified (7) Expressive aphasia Current visit: No Status: Acute Possibly due to CVA. Management as above. (8) Seizure Current visit: No Status: Acute Cont home medications (9) Prostate cancer metastatic to intrapelvic lymph node Current visit: No Status: Chronic F/U with oncology as outpatient. Internal Medicine - H&P: HPI Chief complaint: AMS Admitted From: Long-term Nursing Facility Plans for Post Hospital Care: Transfer Inp Rehab Fac History of present illness: Mr. Aguero is a 72 year old male with Hx of prostate cancer, seizure, ESTHER, DM, chronic pain with vagal nerve stimulator, sent from [facility] for AMS and expressive aphasia. Pt was rencently admitted for the same reason and was discharged yesterday. Pt is awake, alert when I saw him, but disoriented, only knows that he is in [facility], but cannot tell the date and who is the president. Hx is mainly obtained from old chart. Pt denies fevers, chills, lightheadedness, syncope, difficulty swallowing, chest pain, shortness of breath , abdominal pain, nausea, vomiting, constipation, diarrhea, dysuria, or leg pain or swelling. He seems having difficulties to find words to express himself. CT head in ER shows acute/subacute infarct on right upper lobe. Pt was admitted for further management. Past Med Surg Social Fam HX - Past Medical History Medical history: non-contributory, cancer, diabetes, seizures, thyroid disease, other Psychiatric history: anxiety, bipolar, depression - Past Surgical History Surgical History: non-contributory - Social History Smoking Status: Former smoker Smokeless Tobacco Status: No Alcohol use: rarely Drug use: none - Family History Mother History Unknown: Yes Internal Medicine - H&P: Meds Amlodipine Besylate 10 mg PO DAILY 06/21/16 [History] Aspirin Enteric Coated [Aspirin EC] 81 mg PO DAILY 06/21/16 [History] Atorvastatin Calcium [Lipitor] 80 mg PO HS 06/21/16 [History] Divalproex (24 HR) [Depakote ER (24 HR)] 500 mg PO TID 06/21/16 [History] Famotidine [Pepcid] 40 mg PO HS 06/21/16 [History] Levothyroxine Sodium [Levoxyl] 25 mcg PO QAM 06/21/16 [History] Losartan Potassium [Cozaar] 100 mg PO DAILY 06/21/16 [History] Multivitamin/Iron/Folic Acid [Centrum Complete Multivit Tab] 1 each PO DAILY 04/27 [History] lamoTRIgine [Lamictal] 100 mg PO BID 06/21/16 [History] Abiraterone Acetate [Zytiga] 4 tab PO DAILY #120 tablet 03/29/17 [Rx] Carbidopa/Levodopa ER 50/200 [Sinemet ER 50-200 Tab] 1 each PO BID 08/04/17 [ History] DULoxetine [Cymbalta] 30 mg PO BID 08/04/17 [History] OxyCODONE/APAP 10/325 [Percocet 10/325 MG] 1 each PO QID 08/04/17 [History] metFORMIN [Glucophage] 500 mg PO BID 08/04/17 [History] Meloxicam [Mobic] 15 mg PO DAILY 30 Days #30 tab 08/06/17 [Rx] 3 Allergy/AdvReac Type Severity Reaction Status Date / Time codeine Allergy Vomiting Verified 07/09/17 13:23 Sulfa (Sulfonamide Allergy Rash Verified 07/09/17 13:23 Antibiotics) All Systems PM: A 10-system review of systems was performed and is negative for pertinent findings except as documented above in the HPI. - Constitutional Vitals: Temp Pulse Resp BP Pulse Ox 97.8 F 83 15 119/53 95 08/08/17 00:12 08/08/17 00:12 08/08/17 00:12 08/08/17 00:12 08/08/17 00:12 General appearance: Present: A&O X 1, no acute distress, answers questions appropriately - Head Head exam: Present: atraumatic, normocephalic - Eye Eye exam: Present: PERRL, conjuntiva pink, sclera anicteric Pupils: Present: PERRL - Neck Neck exam general surgery: Present: supple, trachea midline. Absent: lymphadenopathy - Respiratory Respiratory exam: Present: CTAB. Absent: accessory muscle use, rales, rhonchi, wheezes - Cardiovascular Cardiovascular exam: Present: RRR, +S1, +S2. Absent: diastolic murmur, gallop, rubs, systolic murmur - GI/Abdominal GI/Abdominal exam: Present: normal bowel sounds, soft, no peritoneal signs. Absent: distended, tenderness - Extremities Exam Extremities exam: Present: warm, radial pulses palpable and symmetrical. Absent : calf tenderness, cyanotic, pedal edema - Neurological Exam Neurological exam: Present: CN II-XII intact, oriented X3, no focal deficits, facial droop (Pt seems having left facial drop, not sure it is new or old.). Absent: pronater drift, speech deficit - Skin Skin exam: Present: dry, intact Internal Med - H&P Results - Labs CBC & Chem 7: 08/07/17 15:43 08/07/17 15:43 - EKG Data -: EKG Interpreted by Myself EKG shows normal: sinus rhythm Rate: normal
[2017-08-08] MEDS: *HR* Heparin 5,000 UNIT/ML VIAL SQ SCH ×2 (05:20→17:21)
[2017-08-08] MEDS: Levothyroxine 25 MCG TABLET PO SCH (05:21)
[2017-08-08 05:33] LABS: Bilirubin,Urine Small (Negative); Blood,Urine Negative (Negative); Clarity,Urine Clear (Clear); Color,Urine Yellow (Yellow); Glucose,Urine (UA) Normal (Normal); Ketones,Urine Trace mg/dL (Negative); Leukocyte Esterase,Urine Negative (Negative); Nitrite,Urine Negative (Negative); Protein,Urine Trace mg/dL (Neg-Trace); Specific Gravity,Urine 1.022 (1.010-1.025); Urobilinogen,Urine Normal (Normal)
[2017-08-08 05:36] LABS: Squamous Epithelial Cell,Urine Many per lpf (None-Few)
[2017-08-08 05:46] LABS: Bacteria,Urine Moderate per hpf (None-Few); Hyaline Casts,Urine Moderate per lpf (None-Few); Mucus,Urine Many (Few)
[2017-08-08 06:35] LABS: Amphetamine Screen,Urine Negative ng/mL (Cutoff=1000); Barbiturate Screen,Urine Negative ng/mL (Cutoff=200); Benzodiazepines Screen,Urine Negative ng/mL (Cutoff=200); Cannabinoid Screen,Urine Negative ng/mL (Cutoff = 50); Cocaine Screen,Urine Negative ng/mL (Cutoff= 300); Opiate Screen,Urine Positive ng/mL (Cutoff=300); Phencyclidine Screen,Urine Negative ng/mL (Cutoff=25)
[2017-08-08 07:59] LABS: Basophils % 0.4 %; Eosinophils % 0.6 %; Hematocrit 34.9 % (37.5-50.1); Hemoglobin 11.5 g/dL (12.9-16.9); Immature Granulocytes % 0.4 % (0-4); Lymphocytes # 2.1 K/mcL (0.6-4.6); Mean Corpuscular Hemoglobin 31.7 pg (28.0-33.3); Mean Corpuscular Volume 96.1 fL (83.0-100.0); Mean Platelet Volume 10.8 fL (9.4-12.4); Monocytes # 0.5 K/mcL (0.0-1.3); Neutrophils # 2.7 K/mcL (1.6-8.9); Platelet Count 267 K/mcL (140-400); Red Blood Count 3.63 M/mcL (4.19-5.50); Segmented Neutrophils % 49.6 %
[2017-08-08] MEDS: Aspirin Enteric Coated 81 MG Tablet PO SCH (09:07)
[2017-08-08] MEDS: lamoTRIgine 100 MG TABLET PO SCH ×2 (09:07→21:20)
[2017-08-08] MEDS: Multivit/Ca/Min/Fe/FA 1 TAB TABLET PO SCH (09:07)
[2017-08-08] MEDS: Carbidopa/Levodopa ER 50/200 TABLET PO SCH ×2 (09:07→21:20)
[2017-08-08] MEDS: amLODIPine 5 MG TABLET PO SCH (09:07)
[2017-08-08 09:16] LABS: BUN/Creatinine Ratio 17 (6-26); Blood Urea Nitrogen 16 mg/dL (8-23); Calcium 8.4 mg/dL (8.6-10.3); Carbon Dioxide 23 mEq/L (23-29); Chloride 111 mEq/L (98-107); Glucose 93 mg/dL (70-105); Magnesium 1.6 mg/dL (1.6-2.6); Osmolality,Calculated 295 (280-300); Potassium 3.8 mEq/L (3.5-5.1); Sodium 142 mEq/L (136-145); eGFR For Non-African Americans > 60 (> 60)
[2017-08-08] MEDS: Divalproex (24 HR) 500 MG TABLET PO SCH ×3 (12:07→21:20)
--- NOTE | 2017-08-08 20:11 | Internal Med Progress Note ---
Date of Encounter: 08/08/17 Time of Encounter: 20:09 - Assessment and plan (1) Altered mental status Current Visit: Yes Status: Acute Assessment and plan: Likely secondary to CVA. PT/OT/ST consulted. Continue aspirin and atorvastatin. Continue diagnostic cardiac sonographer. Spoke with POA about baseline mental status today. He is able to converse and take care of his own ADLs/IADLs prior to previous admission. Will monitor. Qualifiers: Altered mental status type: disorientation Qualified Code(s): R41.0 - Disorientation, unspecified (2) CVA (cerebral vascular accident) Current Visit: Yes Status: Acute Assessment and plan: CT showed acute/subacute infarcts. Unable to get MRI. Continue aspirin and atorvastatin. PT/OT/ST consulted. He is amenable to going to short term rehab. Qualifiers: CVA mechanism: unspecified Qualified Code(s): I63.9 - Cerebral infarction, unspecified (3) RUBY (acute kidney injury) Current Visit: No Status: Resolved Assessment and plan: Cr = 0.95 this AM. Resolved. (4) Expressive aphasia Current Visit: No Status: Acute Assessment and plan: Likely secondary to CVA. Management as per above. (5) Seizure Current Visit: No Status: Chronic Assessment and plan: Continue home medications. (6) Depression Current Visit: No Status: Chronic Assessment and plan: Continue home medications. Qualifiers: Depression Type: unspecified Qualified Code(s): F32.9 - Major depressive disorder, single episode, unspecified (7) ESTHER (obstructive sleep apnea) Current Visit: Yes Status: Chronic Assessment and plan: Continue CPAP QHS. (8) DVT prophylaxis Current Visit: Yes Status: Acute Assessment and plan: Continue heparin SC. (9) Prostate cancer metastatic to intrapelvic lymph node Current Visit: No Status: Chronic Assessment and plan: F/U with oncology as outpatient. - Time Spent With Patient 25 - 35 minutes - Subjective Interval history: Patient had no acute events overnight. He converses appropriately this AM. No aphasia noted. A&O x 3. Some difficulty recalling things. Is amenable to going to short term rehab. He has no new complaints. - Constitutional Vitals: Temp Pulse Resp BP Pulse Ox 98.2 F 82 18 104/56 92 08/08/17 19:24 08/08/17 19:24 08/08/17 19:24 08/08/17 19:24 08/08/17 19:24 General appearance: Present: A&O X 1, no acute distress, answers questions appropriately - Respiratory Respiratory exam: Present: CTAB. Absent: accessory muscle use, rales, rhonchi, wheezes Additional comments: Normal WOB - Cardiovascular Cardiovascular exam: Present: RRR, +S1, +S2. Absent: diastolic murmur, gallop, rubs, systolic murmur Additional comments: No BLE edema - GI/Abdominal GI/Abdominal exam: Present: normal bowel sounds, soft. Absent: distended, hepatomegaly, mass, splenomegaly, tenderness - Neurological Exam Neurological exam: Present: alert, CN II-XII intact, oriented X3, no focal deficits, strengths equal and symetr throughout. Absent: facial droop, speech deficit - Skin Skin exam: Present: dry, intact, warm. Absent: cyanosis, rash Internal Medicine: Result - Labs CBC & Chem 7: 08/08/17 07:21 08/08/17 07:21 Labs: Short CBC 08/08/17 Range/Units 07:21 WBC 5.4 (4.3-11.1) K/mcL Hgb 11.5 L (12.9-16.9) g/dL Hct 34.9 L (37.5-50.1) % Plt Count 267 (140-400) K/mcL Neutrophils # 2.7 (1.6-8.9) K/mcL BMP 08/08/17 07:21 Sodium 142 Potassium 3.8 Chloride 111 H Carbon Dioxide 23 BUN 16 Creatinine 0.95 Glucose 93 Calcium 8.4 L Urine 08/08/17 Range/Units 05:08 Urine Color Yellow (Yellow) Urine Clarity Clear (Clear) Urine pH 6.0 (5.0-8.0) pH Units Ur Specific [place] 1.022 (1.010-1.025) Urine Protein Trace (Neg-Trace) mg/dL Urine Glucose (UA) Normal (Normal) mg/dL - ABG Interpretation ABG results: PT/INR, D-dimer PT 11.2 Seconds (9.4-12.1) 08/07/17 17:20 Consult Discharge Plan - Plan Referrals: Sina Judge MD [Primary Care Provider] -
[2017-08-08] MEDS ORDERED: Insulin LISPRO 300 UNITS/3 ML VIAL SQ SCH (21:00)
[2017-08-08] MEDS: Famotidine 20 MG TABLET PO SCH (21:20)
[2017-08-08] MEDS: Latanoprost 2.5 ML BOTTLE BOTH EYES SCH (21:20)
[2017-08-09] MEDS: Levothyroxine 25 MCG TABLET PO SCH (05:50)
[2017-08-09] MEDS: *HR* Heparin 5,000 UNIT/ML VIAL SQ SCH ×2 (05:50→19:13)
[2017-08-09] MEDS: Insulin LISPRO 300 UNITS/3 ML VIAL SQ SCH ×3 (08:09→16:26)
[2017-08-09] MEDS: amLODIPine 5 MG TABLET PO SCH (08:43)
[2017-08-09] MEDS: lamoTRIgine 100 MG TABLET PO SCH ×2 (08:43→20:30)
[2017-08-09] MEDS: Aspirin Enteric Coated 81 MG Tablet PO SCH (08:44)
[2017-08-09] MEDS: Divalproex (24 HR) 500 MG TABLET PO SCH ×3 (08:44→20:30)
[2017-08-09] MEDS: Carbidopa/Levodopa ER 50/200 TABLET PO SCH ×2 (08:44→20:30)
[2017-08-09] MEDS: Multivit/Ca/Min/Fe/FA 1 TAB TABLET PO SCH (08:44)
[2017-08-09] MEDS ORDERED: OLANZapine 5 MG TAB.RAPDIS PO SCH (09:00)
[2017-08-09] MEDS ORDERED: BuPROPion XL (24 HR) 150 MG TABLET PO SCH (09:00)
[2017-08-09] MEDS ORDERED: *HR* OxyCODONE/APAP 10/325 TABLET PO PRN (14:51)
[2017-08-09 15:55] VITALS: BP 140/69
--- NOTE | 2017-08-09 16:56 | Discharge Summary ---
Date of Encounter: 08/09/17 Time of Encounter: 16:52 - Discharge Diagnosis (1) Altered mental status Priority: Secondary Status: Resolved Qualifiers: Altered mental status type: disorientation Qualified Code(s): R41.0 - Disorientation, unspecified (2) CVA (cerebral vascular accident) Priority: Primary Status: Acute Qualifiers: CVA mechanism: unspecified Qualified Code(s): I63.9 - Cerebral infarction, unspecified (3) RUBY (acute kidney injury) Priority: Secondary Status: Resolved (4) Expressive aphasia Priority: Secondary Status: Acute (5) Seizure Priority: Secondary Status: Chronic (6) Depression Priority: Secondary Status: Chronic Qualifiers: Depression Type: unspecified Qualified Code(s): F32.9 - Major depressive disorder, single episode, unspecified (7) ESTHRE (obstructive sleep apnea) Priority: Secondary Status: Chronic (8) DVT prophylaxis Priority: Secondary Status: Acute (9) Prostate cancer metastatic to intrapelvic lymph node Priority: Secondary Status: Chronic Hospital course: Mr. Aguero is a 72 year old male admitted for AMS and worsening expressive aphasia. He was recently admitted here for CVA and discharged. He had altered mental status after returning to care home, so was readmitted here. He was continued on his aspirin and atorvastatin. Repeat CT head showed acute/ subacute infarcts. MRI could not be done due to nerve stimulator. PT/OT was consulted and recommended acute rehab prior to returning to care home. Patient and POA were agreeable with this. He had some RUBY on admission that resolved with IVF x 2. Mental status was normal the day after admission. He continues to have some expressive aphasia, which could be a long-term consequence of CVA. Patient has met maximum benefit of this hospitalization and will be discharged to [facility] for acute rehab in stable condition. Discharge discussed with: patient, nurse, case management, other (POA) - Time Spent with Patient Total time spent providing and/or coordinating discharge services: Greater than 30 minutes - Discharge Medications Home Medications: RX: Amlodipine Besylate 10 mg PO DAILY 06/21/16 [History] RX: Aspirin Enteric Coated [Aspirin EC] 81 mg PO DAILY 06/21/16 [History] RX: Atorvastatin Calcium [Lipitor] 80 mg PO HS 06/21/16 [History] RX: Divalproex (24 HR) [Depakote ER (24 HR)] 500 mg PO TID 06/21/16 [History] RX: Famotidine [Pepcid] 40 mg PO HS 06/21/16 [History] RX: Levothyroxine Sodium [Levoxyl] 25 mcg PO QAM 06/21/16 [History] RX: Losartan Potassium [Cozaar] 100 mg PO DAILY 06/21/16 [History] RX: Multivitamin/Iron/Folic Acid [Centrum Complete Multivit Tab] 1 each PO DAILY 06/21/16 [History] RX: lamoTRIgine [Lamictal] 100 mg PO BID 06/21/16 [History] RX: Abiraterone Acetate [Zytiga] 4 tab PO DAILY #120 tablet 03/29/17 [Rx] RX: Carbidopa/Levodopa ER 50/200 [Sinemet ER 50-200 Tab] 1 each PO BID 08/04/17 [History] RX: OxyCODONE/APAP 10/325 [Percocet 10/325 MG] 1 each PO QID 08/04/17 [History] RX: metFORMIN [Glucophage] 500 mg PO BID 08/04/17 [History] RX: Meloxicam [Mobic] 15 mg PO DAILY 30 Days #30 tab 08/06/17 [Rx] RX: Ergocalciferol (VITAMIN D2) [Vitamin D2] 50,000 unit PO Q1W 08/08/17 [ History] RX: Latanoprost [Xalatan] 1 drop BOTH EYES HS 08/08/17 [History] RX: BuPROPion XL (24 HR) [Wellbutrin Xl] 150 mg PO DAILY 08/09/17 [History] RX: OLANZapine [Zyprexa] 2.5 mg PO DAILY 08/09/17 [History] Allergies/Adverse Reactions: 3 Allergy/AdvReac Type Severity Reaction Status Date / Time codeine Allergy Vomiting Verified 07/09/17 13:23 Sulfa (Sulfonamide Allergy Rash Verified 07/09/17 13:23 Antibiotics) Date of admission: 08/07/17 22:05 Primary care physician: Sina Judge MD Discharging clinician: Vladislav Flores Anticipated date of discharge: 08/09/17 - Constitutional Vitals: Temp Pulse Resp BP Pulse Ox 98.3 F 83 18 140/69 93 08/09/17 15:55 08/09/17 15:55 08/09/17 15:55 08/09/17 15:55 08/09/17 15:55 General appearance: Present: A&O X 3, pleasant, no acute distress, answers questions appropriately - Respiratory Respiratory exam: Present: CTAB. Absent: accessory muscle use, rales, rhonchi, wheezes Additional comments: Normal WOB - Cardiovascular Cardiovascular exam: Present: RRR, +S1, +S2. Absent: diastolic murmur, gallop, rubs, systolic murmur Additional comments: No BLE edema - GI/Abdominal GI/Abdominal exam: Present: normal bowel sounds, soft. Absent: distended, hepatomegaly, mass, splenomegaly, tenderness - Neurological Exam Neurological exam: Present: alert, CN II-XII intact, oriented X3, no focal deficits, strengths equal and symetr throughout. Absent: facial droop, speech deficit - Psychiatric Psychiatric exam: Present: normal affect, normal mood. Absent: anxious, depressed - Skin Skin exam: Present: dry, intact, warm. Absent: cyanosis, rash - Patient Status Disposition: Transfer Inpatient Rehab Fac Condition: Fair Overall status at discharge: patient is progressing back to baseline - Discharge Instructions Follow Up With: Sina Judge MD [Primary Care Provider] - - Diet and Activity Activity: as per physical therapy Diet: diabetic diet, low fat, low cholesterol, low salt diet
--- NOTE | 2017-08-09 17:06 | Physician Discharge Referral ---
ExtendedCare Referral Info Transfer To: [facility] Level of Care: Skilled - Diagnosis (1) Altered mental status Priority: Secondary Status: Resolved (2) CVA (cerebral vascular accident) Priority: Primary Status: Acute (3) RUBY (acute kidney injury) Priority: Secondary Status: Resolved (4) Expressive aphasia Priority: Secondary Status: Acute (5) Seizure Priority: Secondary Status: Chronic (6) Depression Priority: Secondary Status: Chronic (7) ESTHER (obstructive sleep apnea) Priority: Secondary Status: Chronic (8) DVT prophylaxis Priority: Secondary Status: Acute (9) Prostate cancer metastatic to intrapelvic lymph node Priority: Secondary Status: Chronic Prognosis: Fair Aware of Diagnosis: Patient, Family Aware of Prognosis: Patient, Family - Transfer Medications Home Medications: Amlodipine Besylate 10 mg PO DAILY 06/21/16 [History] Aspirin Enteric Coated [Aspirin EC] 81 mg PO DAILY 06/21/16 [History] Atorvastatin Calcium [Lipitor] 80 mg PO HS 06/21/16 [History] Divalproex (24 HR) [Depakote ER (24 HR)] 500 mg PO TID 06/21/16 [History] Famotidine [Pepcid] 40 mg PO HS 06/21/16 [History] Levothyroxine Sodium [Levoxyl] 25 mcg PO QAM 06/21/16 [History] Losartan Potassium [Cozaar] 100 mg PO DAILY 06/21/16 [History] Multivitamin/Iron/Folic Acid [Centrum Complete Multivit Tab] 1 each PO DAILY 04/27 [History] lamoTRIgine [Lamictal] 100 mg PO BID 06/21/16 [History] Abiraterone Acetate [Zytiga] 4 tab PO DAILY #120 tablet 03/29/17 [Rx] Carbidopa/Levodopa ER 50/200 [Sinemet ER 50-200 Tab] 1 each PO BID 08/04/17 [ History] OxyCODONE/APAP 10/325 [Percocet 10/325 MG] 1 each PO QID 08/04/17 [History] metFORMIN [Glucophage] 500 mg PO BID 08/04/17 [History] Meloxicam [Mobic] 15 mg PO DAILY 30 Days #30 tab 08/06/17 [Rx] Ergocalciferol (VITAMIN D2) [Vitamin D2] 50,000 unit PO Q1W 08/08/17 [History] Latanoprost [Xalatan] 1 drop BOTH EYES HS 08/08/17 [History] BuPROPion XL (24 HR) [Wellbutrin Xl] 150 mg PO DAILY 08/09/17 [History] OLANZapine [Zyprexa] 2.5 mg PO DAILY 08/09/17 [History] Allergies/Adverse Reactions: 3 Allergy/AdvReac Type Severity Reaction Status Date / Time codeine Allergy Vomiting Verified 07/09/17 13:23 Sulfa (Sulfonamide Allergy Rash Verified 07/09/17 13:23 Antibiotics) - Respiratory Orders Other (CPAP QHS - settings are 5 with room air.) Smoking Cessation: Smoking cessation has been advised. For more information, call the [place] Tobacco Quit Line at 8-786-RYUJ-NOW. - Advance Directives Power of Supervisor Pastry: Yes Code Status: DNR-Comfort Care - Mobility Orders Other (Per physical therapy) - Rehabiliation Orders Rehab Potential: Fair Rehab Orders: Evaluation for Physical Therapy, Evaluation for Occupational Therapy, Evaluation for Speech Therapy - Diet Orders Regular (Diabetic, Heart Healthy), Cardiac CERTIFICATION: I certify that the transfer of the above named patient to an Extended Care Facility is necessary for the continuing treatment of the diagnosis listed. The above information is true and accurate reflection of patient's current condition. Confidential - Redisclosure prohibited without a patient's written consent.
[2017-08-09] MEDS: Famotidine 20 MG TABLET PO SCH (20:29)
[2017-08-09] MEDS: Latanoprost 2.5 ML BOTTLE BOTH EYES SCH (20:30)
--- NOTE | 2017-08-10 10:11 | Electrocardiograph Report ---
[place] [id number] Test Date: 2017-08-07 Pat Name: Meek Aguero Department: [id number] Room: 3A Gender: M [employer]: : [id number] Requested By: Pa Hannah Order Number: [id number] Reading MD: Dany Kapoor DO Measurements Intervals [place] Rate: 76 P: 21 AK: 191 QRS: -23 QRSD: 89 T: 17 QT: 377 QTc: 407 Interpretive Statements SINUS RHYTHM BORDERLINE LEFT AXIS DEVIATION Electronically Signed On 08-10-2017 10:09:17 EST by Dany Kapoor DO
== END 2017-08-09 21:00 | DRG 45 ==
LOC: EMEROO 14:43 → 3ANU 14:43
PROVIDERS: ADMIT Nurse Practitioner Family; ATTEND Family Medicine